=== PATIENT | female | born 1970 | race Caucasian/White ===

== ENCOUNTER 2020-05-22 08:17 | Emergency (ER) | payer BC ==
[2020-05-22] MEDS ORDERED: Erythromycin Base 0.5% Ophth Oint 3.5 GM Tube EYEBOTH ONE (09:14)
--- NOTE | 2020-05-22 09:17 | EDM.PDOC ---
ED HPI GENERAL MEDICAL PROBLEM - General Chief Complaint: ENT Problem Stated Complaint: pink eye Time Seen by Provider: 05/22/20 08:49 Source of Information: Reports: Patient History Limitations: Reports: No Limitations - History of Present Illness INITIAL COMMENTS - FREE TEXT/NARRATIVE: Patient comes with 2 day history of itchy right eye with clear drainage/some crusting. Benadryl no help. Slept with wet paper towel on face last night as continuous drainage irritated her. Mild runny nose but no sore throat. Mild photophobia. No eye pain or vision change. Denies history of eye allergies in past. 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 - Related Data Allergies Allergy/AdvReac Type Severity Reaction Status Date / Time No Known Allergies Allergy Verified 05/22/20 08:18 Home Meds: Home Meds diphenhydrAMINE [Benadryl] 25 mg PO BEDTIME PRN 05/22/20 [History] Past Medical History - Past Health History Medical/Surgical History: Denies Medical/Surgical History Social & Family History - Tobacco Use Smoking Status *Q: Never Smoker Second Hand Smoke Exposure: No - Caffeine Use Caffeine Use: Reports: Coffee - Recreational Drug Use Recreational Drug Use: No ED ROS GENERAL - Review of Systems Review Of Systems: See Below Constitutional: Reports: Night Sweats HEENT: Reports: Eye Discharge, Rhinitis. Denies: Contact Lenses, Dental Pain, Ear Discharge, Ear Pain, Eye Pain, Hearing Loss, Nosebleed, Nose Pain, Sinus Problem, Throat Pain, Throat Swelling, Vertigo, Vision Change Respiratory: Reports: No Symptoms Cardiovascular: Reports: No Symptoms GI/Abdominal: Reports: No Symptoms : Reports: No Symptoms Musculoskeletal: Reports: No Symptoms Skin: Reports: No Symptoms Neurological: Reports: No Symptoms Psychiatric: Reports: No Symptoms ED EXAM, GENERAL - Physical Exam Exam: See Below Exam Limited By: No Limitations General Appearance: Alert, WD/WN, No Apparent Distress Eye Exam: Bilateral Eye: Conjunctival Injection (right greater than left), EOMI, PERRL, Other (no crusting noted. No periorbital swelling noted) Ears: Hearing Grossly Normal Nose: No: Nasal Deformity, Nasal Swelling, Nasal Drainage Throat/Mouth: Normal Lips, Normal Voice, No Airway Compromise Head: Atraumatic, Normocephalic Neck: Supple Respiratory/Chest: No Respiratory Distress Neurological: Alert, Oriented, Normal Cognition, Normal Gait Psychiatric: Normal Affect, Normal Mood Skin Exam: Normal Color Course - Vital Signs Last Recorded V/S: Last Vital Signs Temp 36.4 C 05/22/20 08:38 Pulse 54 L 05/22/20 08:38 Resp 18 05/22/20 08:38 BP 118/67 05/22/20 08:38 Pulse Ox 99 05/22/20 08:38 - Orders/Labs/Meds Meds: Medications Discontinued Medications Generic Name Dose Route Start Last Admin Trade Name Lulú PRN Reason Stop Dose Admin Erythromycin 1 gm 05/22/20 09:14 05/22/20 09:22 Erythromycin 0.5% Ophth Oint EYEBOTH 05/22/20 09:15 1 applic ONETIME ONE Administration - Re-Assessments/Exams Free Text/Narrative Re-Assessment/Exam: Suspect viral vs allergic conjunctivitis. Does not appear bacterial in nature. Will cover with EMycin Opth for potential bacterial involvement. Recommend OTC allergy eye drops for prn use. Patient cautioned that if this is viral in nature, will have to run its course. Precautions reviewed. To follow up as needed. Departure - Departure Time of Disposition: 09:14 Disposition: Home, Self-Care 01 Condition: Good Clinical Impression: Conjunctivitis Qualifiers: Conjunctivitis type: acute Acute conjunctivitis type: unspecified Laterality: right Qualified Code(s): H10.31 - Unspecified acute conjunctivitis, right eye - Discharge Information *PRESCRIPTION DRUG MONITORING PROGRAM REVIEWED*: Not Applicable *COPY OF PRESCRIPTION DRUG MONITORING REPORT IN PATIENT VINNY: Not Applicable Instructions: Viral Conjunctivitis, Adult, Allergic Conjunctivitis, Adult Referrals: PCP,Not In Area [Primary Care Provider] - Forms: ED Department Discharge Additional Instructions: 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 You can use them 1-2 times a day. Meanwhile apply the 1/4 inch strip of EMycin ointment to eye 4 times a day for approx 5 days. Follow up as needed if you have any worsening problems. Sepsis Event Note (ED) - Evaluation Sepsis Screening Result: No Definite Risk - Focused Exam Vital Signs: Vital Signs Temp Pulse Resp BP Pulse Ox 05/22/20 08:38 36.4 C 54 L 18 118/67 99
== END 2020-05-22 09:40 | disposition home or self-care (01) ==
LOC: LL.ED 08:17
DX: H10.31 Unspecified acute conjunctivitis, right eye (principal)
CPT/HCPCS: 99283; A9270